=== PATIENT | male | born 1950 | race Caucasian/White ===

== ENCOUNTER 2017-04-05 19:20 | Emergency (ER) | payer OTHER ==
[~2017-04-05] VITALS: Ht 177.8 cm; Wt 84.0 kg
[2017-04-05 19:21] VITALS: BP 137/74; PULSE 70; RESP 16; TEMP 99; O2SAT 95
--- NOTE | 2017-04-05 19:30 | PD ---
Physical Exam Time Seen by Provider: 19:28 Narrative 66 y/o male here for evaluation of dizziness for 6-7 days, worse with head movement. Room-spinning sensation. He feels "drunk." Vital signs reviewed. Seen at triage desk. Awaiting bed placement. Data Data Last Documented VS Vital Signs Date Time Temp Pulse Resp B/P Pulse Ox O2 Delivery O2 Flow Rate FiO2 04/05/17 19:21 99.0 70 16 137/74 95 Room Air [facility] Medical Record Reviewed: Yes Supervised Visit with TALA: Estuardo Conti April 05, 2017 19:30
--- NOTE | 2017-04-06 10:45 | EKG ---
Date Performed: 04/05/2017 Time Performed: 19:45:06 PTAGE: 66 years EKG: Sinus rhythm NONSPECIFIC T-WAVE ABNORMALITY BORDERLINE ECG INTERPRETATION BASED ON A DEFAULT AGE OF 40 YEARS NO PREVIOUS TRACING DOCTOR: Everardo Grey Interpretating Date/Time 04/06/2017 10:43:31
== END 2017-04-05 21:05 | disposition left against medical advice (07) ==
LOC: NED 19:20
DX: R42 Dizziness and giddiness (principal)
CPT/HCPCS: 93005; 99283